=== PATIENT | male | born 1945 | race African-American/Black ===

== ENCOUNTER 2020-12-29 15:48 | Emergency (ER) | payer OTHER, MEDICARE ==
[2020-12-29] MEDS ORDERED: Lidocaine 1% w/Epinephrine 1:100K 20 ML VIAL ONE (15:57)
[2020-12-29] MEDS ORDERED: Sterile Water 10 ML ONE (17:26)
[2020-12-29] MEDS ORDERED: CEFAZOLIN 1 GM VIAL ONE (17:26)
== END 2020-12-29 17:47 | disposition home or self-care (01) ==
LOC: NAV ERS 15:48
DX: S81.812A Laceration without foreign body, left lower leg, initial encounter (principal); I10 Essential (primary) hypertension; J45.909 Unspecified asthma, uncomplicated; F17.290 Nicotine dependence, other tobacco product, uncomplicated; Z86.73 Personal history of transient ischemic attack (TIA), and cerebral infarction without residual deficits; W29.3XXA Contact with powered garden and outdoor hand tools and machinery, initial encounter
CPT/HCPCS: 12002; 96372; J0690